=== PATIENT | female | born 1940 | race Caucasian/White ===

== ENCOUNTER 2017-02-23 15:23 | Emergency (ER) | payer MEDICARE, OTHER ==
[~2017-02-23 15:23] MED LIST: ASAB PO; AVAP150 PO; BEN25 PO; COQ-10200 MG OR; COREG12 PO; CORICIDI2 OR; CORICIDI2 PO; DALMANE30 MG OR; GAS-X80 MG PO; KLOR-CON M2020 MEQ PO; L40 PO; LAN125 PO; MULTIPLE VIT PO; PRAVACHOL40 MG PO; SPIRO25 PO; ULTRAM50 PO; VITAMIN D31000 UNIT PO
== END 2017-02-23 15:35 | disposition home or self-care (01) ==
LOC: ER 15:23
DX: M79.89 Other specified soft tissue disorders (principal); I12.9 Hypertensive chronic kidney disease with stage 1 through stage 4 chronic kidney disease, or unspecified chronic kidney disease; N18.9 Chronic kidney disease, unspecified; Z95.810 Presence of automatic (implantable) cardiac defibrillator; Z88.0 Allergy status to penicillin; Z88.5 Allergy status to narcotic agent; Z88.8 Allergy status to other drugs, medicaments and biological substances; Z91.09 Other allergy status, other than to drugs and biological substances; Z79.82 Long term (current) use of aspirin; Z79.899 Other long term (current) drug therapy
CPT/HCPCS: 73630-LT; 99284